=== PATIENT | female | born 2000 | race African-American/Black ===

== ENCOUNTER 2024-08-12 21:51 | Observation (INO) ==
--- NOTE | 2024-08-12 22:46 | Emergency Department Note ---
HPI - Dental/Oral General Chief complaint: Dental/Oral Stated complaint: throat foreign body Source: patient and family Mode of arrival: walk-in Limitations: no limitations History of Present Illness HPI Narrative: The patient is 24 years old female past medical history low-sodium edema, acute kidney injury and past surgical history of bilateral myringotomy with tube placement who presents to the ED with complaint of oral and epigastric pain. Patient was recently hospitalized and treated for severe reaction to flu vaccine requiring steroids. Patient has developed a rash and was prescribed Magic mouthwash and started taking it today. Patient complaining of worsening oral pain and epigastric pain as well as some dizziness.She denies palpitation, headache, nausea vomiting. Onset (ago): day(s) Duration: constant Severity: mild-moderate Relieving factors: Reports nothing Exacerbating factors: Reports nothing Treatment prior to arrival: Reports oral analgesic Related Data Allergies Allergy/AdvReac Type Severity Reaction Status Date / Time doxycycline Allergy Severe Verified 08/12/24 22:07 Influenza Virus Vaccines Allergy Severe Anaphylaxis Verified 08/12/24 22:07 Penicillins Allergy Severe Verified 08/12/24 22:07 acetazolamide (From Diamox Allergy Unknown Verified 08/12/24 22:07 Sequels) Review of Systems Status of ROS 10 or more systems reviewed and unremark able except as noted in history and below Constitutional Denies: fever, chills, change in weight, fatigue or malaise Eyes Denies: change in vision, blurry vision, blind spots or light sensitivity Ears, nose, mouth, and throat Denies: throat pain, neck pain, throat swelling, difficulty swallowing or hoarseness Cardiovascular Reports: chest pain; Denies: palpitations, edema, swelling of feet/ankles or lightheadedness Respiratory Denies: shortness of breath, cough, wheezing or stridor Gastrointestinal Reports: abdominal pain; Denies: nausea, vomiting, coffee grou nds in vomit or heartburn Genitourinary Denies: painful urination, urinary frequency, urinary urgency or urinary incontinence Musculoskeletal Denies: back pain, neck pain, extremity pain, extremity swelling or joint pain Integumentary/Breast Denies: rash, itching, redness, skin pain, skin tenderness or skin swelling Neurological Denies: headache, numbness in extremities, weakness in extremities or lack of coordination Psychiatric Denies: anxiety, mood swings, panic attacks or change in sleep pattern Endocrine Denies: excessive urination, excessive thirst, fatigue or cold intolerance Hematologic/Lymphatic Denies: easy bruising, easy bleeding or enlarged lymph nodes Allergic/Immunologic Denies: hives, throat swelling, tongue swelling or facial swelling [facility] Medical History (Updated 07/29/24 @ 18:34 by Cara Mae RN) Cerebral edema Acute kidney injury Patient denies significant medical history Surgical History S/p bilateral myringotomy with tube placement Social History Smoking status: never smoker Within the past year, how often did you have a drink containing alcohol: never Score interpretation: A score less than 3 is consistent with normal alcohol consumption. Non-prescribed substance use: denies use What is your current living situation: I presently have a place to live Problems where you live: no known problems Feel stressed/tense/nervous/anxious/difficulty sleeping: not at all Life stressor details: Current medical condition Due to disability, difficulty making decisions: No Exam Constitutional: normal general appearance and no apparent distress Vital Signs - 24 hr 08/12/24 22:03 08/12/24 22:11 Temperature 99.6 F Pulse Rate 137 H 127 H Respiratory Rate 20 Blood Pressure 148/104 140/99 Pulse Oximetry 98 98 Oxygen Delivery Me thod Room Air HENMT: normocephalic, head/scalp atraumatic, hearing grossly normal bilaterally and external ears normal Eyes: PERRL, EOMs intact bilaterally, conjunctivae normal and no scleral icterus Neck/C-Spine: visual inspection normal, trachea midline, cervical spine nontender and cervical full ROM noted Lymph: no lymphadenopathy noted and no lymphedema noted Chest: inspection of chest normal, palpation of chest normal and inspection of breasts normal Respiratory: breath sounds equal bilaterally, normal respiratory effort and clear to auscultation bilaterally Cardiovascular: normal heart rate noted, regular rhythm noted, no gallop and no rub Gastrointestinal: abdomen normal to inspection, abdomen soft to palpation, nontender to palpation and nontender to percussion Genitourinary: no CVA tenderness, bladder normal to palpation and external appearance normal Back/Pelvis: spine normal to inspection, no thoracic spine tenderness and no lumbar spine tenderness Extremities: normal to inspection, normal to palpation and no tenderness Neurology: rn psych II-XII intact, no movement abnormality noted and no focal motor deficit noted Psychiatry: oriented x3, thought process normal, cooperative and memory normal Feel stressed/tense/nervous/anxious/difficulty sleeping: not at all Due to disability, difficulty making decisions: No Skin: skin color normal, no rash, no lesions, no ecchymosis noted and no wounds Course Course Hospital Course: 24 years old female past medical history low-sodium edema, acute kidney injury and past surgical history of bilateral myringotomy with tube placement who presents to the ED with complaint of oral and epigastric pain. Patient was recently hospitalized and treated for severe reaction to flu vaccine requiring steroids. Patient has developed a rash and was prescribed Magic mouthwash and started taking it today. Patient complaining of worsening oral pain and epigastric pain as well as some dizziness.She denies palpitation, headache, nausea vomiting. Work up: Labs:Leukocytosis, Hypokalemia, Hyponatremia CT chest abdomen and pelvis; Normal study Patient presents with complaint Chest pain. On evaluation patient has Severe yeast infection in the mouth. Patient recently was hospitalized after suffering severe side effect of flu vaccine, She was placed on extended amount of steroid. On evaluation patient's symptoms today are consistent with candidal esophagitis. We will admit the patient in the hospital for further treatment. I have called the retention to discuss this admission unfortunately I was unable to get hold of them. Vital Signs Vital signs: Vital Signs Temperature 99.6 F 08/12/24 22:03 Pulse Rate 137 H 08/12/24 22:03 Respiratory Rate 20 08/12/24 22:03 Blood Pressure 148/104 08/12/24 22:03 Pulse Oximetry 98 08/12/24 22:03 Oxygen Delivery Method Room Air 08/12/24 22:03 Temperature 99.6 F 08/12/24 22:03 Pulse Rate 127 H 08/12/24 22:11 Respiratory Rate 20 08/12/24 22:03 Blood Pressure 140/99 08/12/24 22:11 Pulse Oximetry 98 08/12/24 22:11 Oxygen Delivery Method Room Air 08/12/24 22:03 MDM - Dental/Oral Differential Diagnosis Differential diagnosis: Likely other Medical Records Attestation: I reviewed the patient's medical records. Lab Data Attestation: I reviewed the patient's lab results. Labs: Lab Results 08/12/24 Range/Units 23:15 WBC 16.7 H (4.3-9.3) K/uL RBC 5.0 (4.00-5.50) M/uL Hgb 13.5 (12.5-15.8) gm/dL Hct 40.7 (35.9-46.7) % MCV 81.5 (81.0-93.7) fl MCH 27.0 L (27.6-32.2) pg MCHC 33.1 (33.1-35.3) g/dl RDW 15.9 H (11.4-14.2) % Plt Count 314 (152-353) K/uL MPV 7.5 (6.9-10.8) fl Gran % 75.1 H (47.8-71.3) % Lymph % (Auto) 17.3 L (20.0-43.0) % [place] % (Auto) 6.9 (3.6-9.8) % Eos % (Auto) 0.4 (0.4-2.8) % Baso % (Auto) 0.3 (0.1-0.85) Lymph # (Auto) 2.9 (1.1-3.1) [place] # (Auto) 1.1 (1.1-3.1) Eos # (Auto) 0.1 (0.0-0.2) Baso # (Auto) 0.0 (0.0-0.1) Absolute Gran (auto) 12.6 H (2.3-6.0) Sodium 135 L (136-145) mmol/L Potassium 3.2 L (3.6-5.2) mmol/L Chloride 99.0 (98-107) mmol/L Carbon Dioxide 26 (21-32) mmol/L Anion Gap 10.0 (4-14) mEq/L BUN 12 (7-18) mg/dL Creatinine 0.8 (0.6-1.3) mg/dL Estimated GFR 105.5 (>59.9) Glucose 133 H (70-110) mg/dL Calcium 8.3 L (8.5-10.1) mg/dL Total Bilirubin 0.34 (0.0-1.0) mg/dL AST 8 L (15-37) U/L ALT 22 L (30-65) U/L Alkaline Phosphatase 59 (50-136) U/L Total Protein 6.6 (6.4-8.2) g/dL Albumin 3.1 L (3.4-5.0) g/dL Imaging Data Imaging ordered: CT scan - abdomen, CT scan - chest and CT scan - pelvis Attestation: I have reviewed the pertinent imaging results. Radiologist's impression: ROCEDURE: CT Chest, Abdomen, and Pelvis without IV Contrast. HISTORY: chst and epigastric pain.chst and epigastric pain.; . TECHNIQUE: Axial images were performed through the chest, abdomen, and pelvis without the administration of IV contrast with multiplanar reformations . Oral contrast was not administered . Dose reduction techniques including Automated Exposure Control (AEC) and adjustment of mA and kV were utilized . COMPARISON: None. TECHNICAL QUALITY: Satisfactory. FINDINGS: Normal thoracic aorta. Mediastinum and hilar regions show no masses or lympha denopathy. Normal-sized heart with no pericardial fluid. No pulmonary consolidation, masses, or pleural fluid. Liver, spleen, adrenals, and pancreas show no abnormality. Kidneys show no stones or obstruction. Normal biliary tract. No ascites or pneumoperitoneum. Normal aorta. No lymphadenopathy. No bowel obstruction or inflammation and normal appendix. Pelvis shows no masses or free fluid with unremarkable reproductive organs and urinary bladder. No acute bony abnormality. IMPRESSION: No abnormality identified. Discharge Plan Discharge Patient Disposition: Admitted As Observation Condition: Other Clinical Impression: Anabelle esophagitis, Oropharyngeal candidiasis, Leukocytosis, Hypokalemia Time of Disposition: 00:23
[2024-08-12] MEDS: GI COCKTAIL 30 ML SOLUTION PO ONE (23:09)
[2024-08-12 23:29] LABS: Basophils%(Percent) Auto 0.3 (0.1-0.85); Eosinophils#(Absolute)Auto 0.1 (0.0-0.2); Eosinophils%(Percent) Auto 0.4 % (0.4-2.8); Granulocytes % - Auto 75.1 % (47.8-71.3); Granulocytes#(Absolute)- Auto 12.6 (2.3-6.0); Hematocrit 40.7 % (35.9-46.7); Mean Corpuscular Volume 81.5 fl (81.0-93.7); Monocytes #(Absolute)- Auto 1.1 (1.1-3.1); Monocytes %(Percent)- Auto 6.9 % (3.6-9.8); Platelet Count 314 K/uL (152-353); White Blood Count 16.7 K/uL (4.3-9.3)
[2024-08-12 23:34] LABS: Potassium 3.2 mmol/L (3.6-5.2)
[2024-08-12] MEDS ORDERED: 0.9 % SODIUM CHLORIDE 1000 ML 1,000 ML IV SCH (23:45)
[2024-08-13] MEDS ORDERED: 0.9 % SODIUM CHLORIDE 1000 ML 1,000 ML IV ONE (00:01)
[2024-08-13] MEDS ORDERED: POTASSIUM CHLORIDE 20 MEQ TAB.ER.PRT PO ONE (00:02)
[2024-08-13] MEDS ORDERED: ONDANSETRON HCL/PF 4 MG/2 ML VIAL ONE (00:09)
[2024-08-13] MEDS: ONDANSETRON HCL/PF 4 MG/2 ML VIAL IVP ONE (00:15)
[2024-08-13] MEDS: PANTOPRAZOLE SODIUM 40 MG VIAL INJ ONE (00:17)
[2024-08-13] MEDS: 0.9 % SODIUM CHLORIDE 1000 ML 1,000 ML IV ONE (00:20)
[2024-08-13] MEDS: MORPHINE SULFATE 2 MG/ML CARTRIDGE IV ONE (00:20)
[2024-08-13] MEDS: POTASSIUM CHLORIDE 20 MEQ TAB.ER.PRT PO ONE (00:23)
[2024-08-13] MEDS ORDERED: FLUCONAZOLE-NACL 200 MG/100 ML 200 MG/100 ML PIGGYBACK IV ONE (00:24)
[2024-08-13] MEDS ORDERED: ACETAMINOPHEN 325 MG TABLET PO PRN (00:25)
[2024-08-13] MEDS ORDERED: ONDANSETRON HCL/PF 4 MG/2 ML VIAL INJ PRN (00:25)
[2024-08-13] MEDS: FLUCONAZOLE-NACL 200 MG/100 ML 200 MG/100 ML PIGGYBACK IV SCH (00:53)
[2024-08-13] MEDS: 0.9 % SODIUM CHLORIDE 1000 ML 1,000 ML IV SCH (01:28)
[2024-08-13 01:37] LABS: PH BODY FLUID EXCP BLOOD 7.5 (5 - 9); Urine Appearance HAZY (CLEAR); Urine Blood NEGATIVE (NEG - TRACE); Urine Color YELLOW (STRAW/YELL.); Urine Urobilinogen Normal (NORMAL)
[2024-08-13 04:03] VITALS: BP 142/89; PULSE 111; RESP 20; TEMP 98.6
[2024-08-13] MEDS: MORPHINE SULFATE 2 MG/ML CARTRIDGE IV PRN (04:49)
[2024-08-13] MEDS: GI COCKTAIL 30 ML SOLUTION PO ONE (05:37)
[2024-08-13] MEDS ORDERED: ENOXAPARIN SODIUM 40 MG/0.4 ML SYRINGE SUBQ SCH (09:00)
== END 2024-08-13 07:51 | disposition home or self-care (01) ==
LOC: MS 21:51 → ED 21:51 → MS 08-13 01:10
PROVIDERS: ADMIT Physician Assistant; ATTEND Family Medicine